=== PATIENT | female | born 1960 | race Caucasian/White ===

== ENCOUNTER 2019-02-21 12:33 | Emergency (ER) | payer BC, OTHER ==
[~2019-02-21] VITALS: Ht 167.6 cm; Wt 46.0 kg
[2019-02-21 12:44] VITALS: BP 164/86
[2019-02-21] MEDS ORDERED: SILVER SULF. CRM 1% , 25GM TP ONE (13:00)
[2019-02-21] MEDS ORDERED: SILVER SULF. CRM 1% , 25GM ONE (13:08)
[2019-02-21] MEDS ORDERED: DIPH,PERTUSS(ACELL),TET VAC/PF 0.5 ML IM-VACC ONE (13:30)
== END 2019-02-21 13:55 | disposition home or self-care (01) ==
LOC: ED 13:43
DX: T23.151A Burn of first degree of right palm, initial encounter (principal); T31.0 Burns involving less than 10% of body surface; X08.8XXA Exposure to other specified smoke, fire and flames, initial encounter; Y93.89 Activity, other specified; Y92.89 Other specified places as the place of occurrence of the external cause; Y99.8 Other external cause status
CPT/HCPCS: 16020; 99284